=== PATIENT | female | born 1945 | race Caucasian/White ===

== ENCOUNTER → 2023-07-26 11:04 | Outpatient (REF) | payer MEDICARE, OTHER, SELFPAY ==
[2023-07-26 11:34] LABS: Ionized Calcium 1.19 mMOL/L (1.15-1.33)
[2023-07-26 11:36] LABS: % Basophils 0.5 % (0-2); % Eosinophils 1.5 % (0-6); % Immature Granulocytes 0.3 % (0-0.5); % Lymphocytes 20.8 % (20.5-51.1); % Monocytes 5.8 % (1.7-9.3); % Neutrophils 71.1 % (42.2-75.2); Absolute Eosinophils 0.1 10^3/uL (0-0.7); Absolute Lymphocytes 1.6 10^3/uL (1.2-3.4); Absolute Monocytes 0.4 10^3/uL (0.1-0.6); Absolute Neutrophils 5.3 10^3/uL (1.4-6.5); Hematocrit 35.1 % (37.0-47.0); Hemoglobin 11.9 g/dL (12.0-16.0); Mean Corp Hgb Conc. 33.9 g/dL (33.0-37.0); Mean Corpuscular Hgb 30.7 pg (27.0-31.0); Mean Corpuscular Volume 90.5 fL (81.0-99.0); Nucleated Red Blood Cells % 0 %; Platelet Count 322 10^3/uL (130-400); Red Blood Cell Count 3.88 10^6/uL (4.20-5.40); White Blood Cell Count 7.5 10^3/uL (4.8-10.8)
[2023-07-26 12:13] LABS: Erythrocyte Sed Rate 42 mm/hour (0-20)
[2023-07-26 12:21] LABS: ALT (SGPT) 18 U/L (0-35); AST (SGOT) 25 U/L (14-36); Albumin 3.9 g/dl (3.5-5.0); Alkaline Phosphatase 121 U/L (38-126); Blood Urea Nitrogen 16 mg/dl (7-17); Calcium 9.3 mg/dl (8.4-10.2); Carbon Dioxide 26 mmol/L (22-30); Chloride 102 mmol/L (98-107); Glucose 104 mg/dl (70-99); Potassium 4.3 mmol/L (3.5-5.1); Sodium 133 mmol/L (135-145); Total Bilirubin 0.4 mg/dl (0.2-1.3); Total Protein 7.4 g/dl (6.3-8.2); Uric Acid 6.6 mg/dl (2.5-6.2); eGFR > 60.00
[2023-07-26 16:46] LABS: Free T4 1.04 ng/dl (0.78-2.19)
[2023-07-26 17:00] LABS: TSH 2.07 uIU/ml (0.47-4.68)
[2023-07-26 17:20] LABS: Vitamin B12 459 pg/ml (239-931)
[2023-07-28 10:18] LABS: Intact PTH 31.4 pg/ml (13.6-85.8)
[2023-07-28 16:58] LABS: CCP Antibody IgG/IgA 14 Units (0-19)
[2023-07-30 16:55] LABS: Lyme Antibody Screen, EIA Presump. Positive (Negative); Rheumatoid Agglutinin Less Than 10 IU (<10 IU)
[2023-08-02 17:11] LABS: Lyme Ab Western Blot IgG Positive (Negative); Lyme Ab Western Blot IgM Negative (Negative)
== END ==
LOC: REG 11:04
PROVIDERS: ATTENDING PHYSICIAN Internal Medicine Rheumatology; FAMILY PHYSICIAN Internal Medicine
DX: A69.23 Arthritis due to Lyme disease (principal); E07.9 Disorder of thyroid, unspecified; E53.8 Deficiency of other specified B group vitamins; E55.9 Vitamin D deficiency, unspecified; M11.20 Other chondrocalcinosis, unspecified site; M25.522 Pain in left elbow; M25.532 Pain in left wrist; M77.12 Lateral epicondylitis, left elbow
CPT/HCPCS: 36415; 80053; 82306; 82330; 82607; 83970; 84439; 84443; 84550; 85025; 85652; 86140; 86200; 86430; 86617; 86618

== ENCOUNTER → 2023-10-10 09:19 | Outpatient (REF) | payer MEDICARE, OTHER, SELFPAY ==
[2023-10-10 12:29] LABS: C-Reactive Protein < 5.00 mg/L (0.0-10.00)
[2023-10-10 12:51] LABS: Erythrocyte Sed Rate 15 mm/hour (0-20)
== END ==
LOC: HWLAB 09:19
PROVIDERS: ATTENDING PHYSICIAN Internal Medicine Rheumatology; FAMILY PHYSICIAN Internal Medicine
DX: A69.23 Arthritis due to Lyme disease (principal); E07.9 Disorder of thyroid, unspecified; E53.8 Deficiency of other specified B group vitamins; E55.9 Vitamin D deficiency, unspecified; M11.20 Other chondrocalcinosis, unspecified site; M25.522 Pain in left elbow; M25.532 Pain in left wrist; M77.12 Lateral epicondylitis, left elbow
CPT/HCPCS: 36415; 85652; 86140

== ENCOUNTER → 2023-12-14 07:07 | Outpatient (REF) | payer MEDICARE, OTHER, SELFPAY ==
[2023-12-14 09:38] LABS: % Basophils 0.9 % (0-2); % Eosinophils 2.7 % (0-6); % Immature Granulocytes 0.4 % (0-0.5); % Lymphocytes 27.1 % (20.5-51.1); % Monocytes 8.6 % (1.7-9.3); % Neutrophils 60.3 % (42.2-75.2); Absolute Basophils 0.1 10^3/uL (0-0.2); Absolute Eosinophils 0.2 10^3/uL (0-0.7); Absolute Lymphocytes 1.5 10^3/uL (1.2-3.4); Absolute Monocytes 0.5 10^3/uL (0.1-0.6); Absolute Neutrophils 3.4 10^3/uL (1.4-6.5); Hematocrit 39.9 % (37.0-47.0); Hemoglobin 13.7 g/dL (12.0-16.0); Mean Corp Hgb Conc. 34.3 g/dL (33.0-37.0); Mean Corpuscular Hgb 31.1 pg (27.0-31.0); Mean Corpuscular Volume 90.5 fL (81.0-99.0); Mean Platelet Volume 8.5 fL (7.4-10.4); Nucleated Red Blood Cells % 0 %; Platelet Count 247 10^3/uL (130-400); Red Blood Cell Count 4.41 10^6/uL (4.20-5.40); Red Cell Dist. Width 12.1 % (11.5-14.5); White Blood Cell Count 5.6 10^3/uL (4.8-10.8)
[2023-12-14 10:06] LABS: Erythrocyte Sed Rate 19 mm/hour (0-20)
[2023-12-14 10:16] LABS: ALT (SGPT) 20 U/L (0-35); AST (SGOT) 27 U/L (14-36); Albumin 4.3 g/dl (3.5-5.0); Alkaline Phosphatase 83 U/L (38-126); Blood Urea Nitrogen 19 mg/dl (7-17); Calcium 9.3 mg/dl (8.4-10.2); Carbon Dioxide 25 mmol/L (22-30); Chloride 102 mmol/L (98-107); Glucose 101 mg/dl (70-99); Sodium 138 mmol/L (135-145); Total Protein 7.2 g/dl (6.3-8.2); eGFR > 60.00
[2023-12-14 10:18] LABS: C-Reactive Protein < 5.00 mg/L (0.0-10.00)
== END ==
LOC: HWLAB 07:07
PROVIDERS: ATTENDING PHYSICIAN Internal Medicine Rheumatology; FAMILY PHYSICIAN Internal Medicine
DX: A69.23 Arthritis due to Lyme disease (principal); M11.20 Other chondrocalcinosis, unspecified site; M25.522 Pain in left elbow; M25.532 Pain in left wrist; M77.12 Lateral epicondylitis, left elbow
CPT/HCPCS: 36415; 80053; 85025; 85652; 86140

== ENCOUNTER → 2024-03-28 09:47 | Outpatient (REF) | payer MEDICARE, OTHER, SELFPAY | LOC: RAD 09:47 | PROVIDERS: ATTENDING PHYSICIAN Internal Medicine | DX: M79.661 Pain in right lower leg (principal) | CPT/HCPCS: 93971 ==

== ENCOUNTER → 2024-04-14 09:01 | Outpatient (REF) | payer MEDICARE, OTHER, SELFPAY ==
[2024-04-14 12:20] LABS: % Basophils 0.9 % (0-2); % Eosinophils 2.7 % (0-6); % Immature Granulocytes 0.2 % (0-0.5); % Lymphocytes 26.9 % (20.5-51.1); % Monocytes 8.9 % (1.7-9.3); % Neutrophils 60.4 % (42.2-75.2); Absolute Basophils 0.1 10^3/uL (0-0.2); Absolute Eosinophils 0.2 10^3/uL (0-0.7); Absolute Lymphocytes 1.5 10^3/uL (1.2-3.4); Absolute Monocytes 0.5 10^3/uL (0.1-0.6); Absolute Neutrophils 3.3 10^3/uL (1.4-6.5); Hematocrit 41.1 % (37.0-47.0); Hemoglobin 13.3 g/dL (12.0-16.0); Mean Corp Hgb Conc. 32.4 g/dL (33.0-37.0); Mean Corpuscular Hgb 30.4 pg (27.0-31.0); Mean Corpuscular Volume 93.8 fL (81.0-99.0); Mean Platelet Volume 8.3 fL (7.4-10.4); Nucleated Red Blood Cells % 0 %; Platelet Count 268 10^3/uL (130-400); Red Blood Cell Count 4.38 10^6/uL (4.20-5.40); Red Cell Dist. Width 11.7 % (11.5-14.5); White Blood Cell Count 5.5 10^3/uL (4.8-10.8)
[2024-04-14 12:48] LABS: ALT (SGPT) 16 U/L (0-35); AST (SGOT) 25 U/L (14-36); Albumin 4.1 g/dl (3.5-5.0); Alkaline Phosphatase 87 U/L (38-126); Blood Urea Nitrogen 14 mg/dl (7-17); Calcium 9.2 mg/dl (8.4-10.2); Carbon Dioxide 28 mmol/L (22-30); Chloride 99 mmol/L (98-107); Glucose 66 mg/dl (70-99); Potassium 4.4 mmol/L (3.5-5.1); Sodium 135 mmol/L (135-145); Total Bilirubin 0.8 mg/dl (0.2-1.3); Total Protein 7.1 g/dl (6.3-8.2); eGFR > 60.00
[2024-04-14 12:54] LABS: C-Reactive Protein < 5.00 mg/L (0.0-10.00)
[2024-04-14 14:38] LABS: Erythrocyte Sed Rate 18 mm/hour (0-20)
== END ==
LOC: HWLAB 09:01
PROVIDERS: ATTENDING PHYSICIAN Internal Medicine Rheumatology; FAMILY PHYSICIAN Internal Medicine
DX: A69.23 Arthritis due to Lyme disease (principal); M11.20 Other chondrocalcinosis, unspecified site; M25.522 Pain in left elbow; M25.532 Pain in left wrist; M77.12 Lateral epicondylitis, left elbow
CPT/HCPCS: 36415; 80053; 85025; 85652; 86140

== ENCOUNTER → 2024-10-31 07:55 | Outpatient (REF) | payer MEDICARE, OTHER, SELFPAY ==
[2024-10-31 08:48] LABS: Hematocrit 40.7 % (37.0-47.0); Hemoglobin 13.9 g/dL (12.0-16.0); Mean Corp Hgb Conc. 34.2 g/dL (33.0-37.0); Mean Corpuscular Volume 91.3 fL (81.0-99.0); Nucleated Red Blood Cells % 0 %; Platelet Count 243 10^3/uL (130-400); Red Cell Dist. Width 11.8 % (11.5-14.5)
[2024-10-31 09:14] LABS: ALT (SGPT) 17 U/L (0-35); AST (SGOT) 24 U/L (14-36); Albumin 4.6 g/dl (3.5-5.0); Alkaline Phosphatase 64 U/L (38-126); Blood Urea Nitrogen 15 mg/dl (7-17); Calcium 9.4 mg/dl (8.4-10.2); Carbon Dioxide 27 mmol/L (22-30); Chloride 101 mmol/L (98-107); Glucose 78 mg/dl (70-99); Magnesium 2.0 mg/dl (1.6-2.3); Potassium 4.3 mmol/L (3.5-5.1); Sodium 135 mmol/L (135-145); Total Protein 7.5 g/dl (6.3-8.2); eGFR > 60.00
[2024-10-31 09:21] LABS: C-Reactive Protein < 5.00 mg/L (0.0-10.00)
[2024-10-31 09:46] LABS: Vitamin D, 25-OH*** 61.6 ng/mL (30-80)
[2024-10-31 10:11] LABS: Vitamin B12 408 pg/ml (239-931)
== END ==
LOC: REG 07:55
PROVIDERS: ATTENDING PHYSICIAN Internal Medicine Rheumatology; FAMILY PHYSICIAN Internal Medicine
DX: E07.9 Disorder of thyroid, unspecified (principal); E53.8 Deficiency of other specified B group vitamins; E55.9 Vitamin D deficiency, unspecified; M11.20 Other chondrocalcinosis, unspecified site; R20.2 Paresthesia of skin
CPT/HCPCS: 36415; 80053; 82306; 82330; 82607; 83735; 84443; 85025; 85652; 86140